=== PATIENT | male | born 1970 | race Caucasian/White ===

== ENCOUNTER 2016-12-07 07:23 | Outpatient (CLI) | payer BC ==
[2016-12-07 08:08] LABS: Hemoglobin A1c 7.2 % (4.0-6.0)
[2016-12-07 08:10] LABS: ALT (SGPT) 21 U/L (0-55); AST (SGOT) 15 U/L (5-34); Albumin 4.3 g/dL (3.5-5.0); Alkaline Phosphatase 103 U/L (40-150); Anion Gap 14 mmol/L (10-20); BUN (Urea Nitrogen) 22 mg/dL (8.9-20.6); Bilirubin, Total 0.7 mg/dL (0.2-1.2); Calc. Creatinine Clearance 0 mL/min (70-130); Calcium 9.5 mg/dL (7.8-10.44); Carbon Dioxide 27 mmol/L (22-29); Cardiac Risk 4.1 (Less than 4.5); Chloride 102 mmol/L (98-107); Cholesterol 141 mg/dL (< 200 Desired); Estimated GFR-MDRD 68; Glucose 61 mg/dL (70-105); HDL Cholesterol 34 mg/dL (>60 Neg Risk); LDL Cholesterol, Calculated 88 mg/dL; Potassium 4.1 mmol/L (3.5-5.1); Protein, Total 7.3 g/dL (6.0-8.3); Sodium 139 mmol/L (136-145); Triglycerides 95 mg/dL (Less than 150)
== END 2016-12-07 07:24 | disposition home or self-care (01) ==
LOC: NAV LAB 07:23
PROVIDERS: ATTEND Family Medicine
DX: E11.9 Type 2 diabetes mellitus without complications (principal)
CPT/HCPCS: 36415; 80053; 80061; 83036

== ENCOUNTER 2019-07-12 14:09 | Emergency (ER) | payer BC ==
[2019-07-12] MEDS ORDERED: Ondansetron PF 4 MG/2 ML Vial ONE (14:30)
[2019-07-12] MEDS ORDERED: Morphine 4 MG/ML VIAL ONE (14:31)
--- NOTE | 2019-07-12 15:03 | RAD ---
Exam:2 views left femur HISTORY: Trauma. Kicked by cow. COMPARISON: None FINDINGS: No fracture. No cortical irregularity. No periosteal reaction. IMPRESSION: No fracture.
--- NOTE | 2019-07-12 15:04 | RAD ---
Exam:4 views left knee HISTORY: Trauma. Pain. Kicked by cow. COMPARISON: None FINDINGS: Joint spaces are preserved. No fracture. No malalignment. No joint effusion. IMPRESSION: No fracture.
== END 2019-07-12 15:20 | disposition home or self-care (01) ==
LOC: NAV ERS 14:09
DX: S70.12XA Contusion of left thigh, initial encounter (principal); M25.562 Pain in left knee; E11.9 Type 2 diabetes mellitus without complications; E78.5 Hyperlipidemia, unspecified; E78.00 Pure hypercholesterolemia, unspecified; I10 Essential (primary) hypertension; F17.220 Nicotine dependence, chewing tobacco, uncomplicated; Z79.4 Long term (current) use of insulin; Z79.82 Long term (current) use of aspirin; Z79.899 Other long term (current) drug therapy; W55.22XA Struck by cow, initial encounter
CPT/HCPCS: 96374; 96375; J2270; J2405